=== PATIENT | female | born 1990 | race Caucasian/White ===

== ENCOUNTER 2016-12-08 17:52 | Emergency (ER) | payer OTHER ==
[~2016-12-08] VITALS: Ht 157.5 cm; Wt 50.0 kg
[2016-12-08 17:55] VITALS: BP 126/53; PULSE 77; RESP 16; O2SAT 100
--- NOTE | 2016-12-08 19:39 | ED.REPORT ---
HPI-Abd Pain F Under 39 Date of Service Dec 08, 2016 ED Provider: Guerita Amaya History of Present Illness: 26-year-old female here for lower abdominal pain/cramping. Intermittent for a week, at this point a 2 out of 10 ,at worst it is a 4 out of 10. It feels like menstrual cramps she has had in the past although she does not get a period. Since having the Mirena implanted in 1-1/2 years ago. No nausea no vomiting no diarrhea. No vaginal discharge. She is sexually active, no new partners. She does have a new rash on her lower abdomen just distal to her belly button. At this point she has scratched the original lesions but they were blisterlike lesions. She has a few of these lesions on her right upper thigh as well. No urinary symptoms, she does have some low back pain. Nursing Notes Stated Complaint: PELVIC PAIN AND SWOLLEN PELVIS Chief Complaint: Female Abdominal Pain Nursing Notes Reviewed: Yes Allergies: Coded Allergies: No Known Allergies (Unverified , 12/08/16) General Time Seen by MD: 19:38 Chief Complaint Abdominal pain Hx Obtained From: Patient Arrived By: Walk-in Onset Occurred: 1 week ago Symptom Duration: Waxes and wanes Location: : Abdomen lower Quality: Cramping Severity: Current: Pain level 2 out of 10 Severity: Maximum: Pain level 4 out of 10 Recent Healthcare: No recent doctor visit Similar Sx Previous: Yes Past Medical History Past Medical History Notes: menstrual cramps, severe Review of Systems Basic Review of Systems Eyes: Vision NL, No discharge ENT: Hearing NL, No pain, No nasal congestion, No pharyngeal pain Neurologic: NL mental status, No weakness, No numbness Psychiatric: Normal thought content Constitutional: Denies: Fatigue GI: Reports: Abdominal pain, Denies: Diarrhea, Nausea, Vomiting Female: Denies: Dysuria, Flank pain Musculoskeletal: Reports: Back pain Complete sys rev & neg: except as marked. Physical Exam Initial Vital Signs Vital Signs (First) Date Time Temp Pulse Resp B/P Pulse Ox O2 Delivery O2 Flow Rate FiO2 12/08/16 17:55 37.1 77 16 126/53 100 Room Air Initial VS: Reviewed, Vital signs normal General/Constitutional: Awake, Alert, No acute distress, Well appearing Respiratory / Chest: Breath sounds NL, Breath sounds = bilat, No respiratory distress, No rales, No rhonchi, No wheezing Cardiovascular: Heart rate NL, Regular rhythm, Heart sounds NL, Peripheral circulation NL Abdomen: Atraumatic, Soft, McBurney's non-tender, No guarding, No rebound, BS normoactive Tenderness/Guarding/Rebound: Positive: Tender LLQ... (Mild), Tender RLQ... ( Mild) Back: Inspection NL, Non-tender, No CVA tenderness Head / Eyes: Normocephalic, PERRL Rash / Lesion Notes: Excoriated vesicles present just distal to umbilicus with erythematous base. Tender to palpate. 2 similar lesions noted on her right upper outer thigh. vzv/hsv samples taken from suprapubic lesions after unroofing. no fluid noted. Female Genitourinary: External genitalia NL, No bleeding, No cervical motion tend, Os closed, No foreign body, No adnexal mass, No adnexal tenderness, No uterine enlargement Very mildly sanguinous discharge area normal amount and normal appearing discharge. No CMT. IUD strings not visible. No ovarian tenderness. She does have palpable and tender lymph nodes bilaterally. Specimens taken from cervix. Re-Eval/Medical Decision Med Decision/Clinical Course Med Decision/Clinical Course: 2129- signed out to Dr Hillman. Discharge & Departure Referrals: NOPCP (PCP) Guerita Amaya Dec 08, 2016 19:39
[2016-12-08 23:02] VITALS: BP 124/60; PULSE 72; RESP 16; O2SAT 100
--- NOTE | 2016-12-09 08:50 | DRSVH ---
PROCEDURE: US PELVIC SONOGRAM + TRANSVAGINAL SONOGRAM INDICATIONS: abd pain, missing IUD TECHNIQUE: Real-time scanning was performed of the pelvic organs, with image documentation. Additional endovagi nal scanning was necessary due to incomplete visualization of the adnexal and endometrial structures by transabdominal scanning. COMPARISON: [facility], US, US PELVIC+TRANSVAG, 07/30/2016, 9:54. FINDINGS: Transabdominal scanning: Limited scanning through the kidneys shows no hydronephrosis. No pathologi c free abdominal or pelvic fluid. Endovaginal scanning: Uterus: Uterus is normal in size at 8.9 x 3.7 x 2.9 cm. The endometrium measures 4.3 mm in combined thickness. IUD is in place. Ovaries: Are within normal limits bilaterally with follicular cysts bilaterally. IMPRESSION: IUD is in place. No acute process. Concordant with preliminary interpretation. Dictated by: Jose Raul Spann M.D. on 12/09/2016 at 8:47 Approved by: Jose Raul Spann M.D. on 12/09/2016 at 8:48
== END 2016-12-08 23:03 | disposition home or self-care (01) ==
LOC: SED 17:52
DX: R10.2 Pelvic and perineal pain (principal)